=== PATIENT | male | born 1965 | race Caucasian/White ===

== ENCOUNTER → 2017-03-28 | Day surgery (SDC) | payer BC ==
[~2017-03-28] MED LIST: ESZO3TAB28 PO; IV RINGERS,LACTATED 1000ML 1,000 ML IV SCH; LIDOCAINE 2% PF Vial for OR 5 ML VIAL. ONE; PROPOFOL 40 ML IV ONE
--- NOTE | 2017-03-28 13:17 | PDOC1 ---
History and Physical Date of Admission Date of Admission DATE: 03/28/17 TIME: 13:11 Source Source: Chart review, Patient History of Present Illness History of Present Illness 51 y/o male with recent change in bowel habits, looser. H/o "polyp" at last colonoscopy 2010. Also recent heartburn and weight loss. Past Medical History Cardiovascular: Hyperlipidemia Heme/Onc: Cancer (testicular) Psych: Anxiety Past Surgical History Past Surgical History: Other (orchietomy, foot surgery x 2, rotator cuff repair , nasal septoplasty x 2) Family History Family History: Hypertension, Stroke Social History Smoke: No ALCOHOL: occassional Drugs: None Current Medications Current Medications Current Medications Ringer's Solution 1,000 ml @ 50 mls/hr Q20H IV Last administered on 03/28/17t 12:46; Start 03/28/17 at 07:00; Stop 03/28/17 at 18:59 Propofol 40 ml @ As Directed STK-MED ONCE IV ; Start 03/28/17 at 12:47; Stop at 12:48; Status DC Lidocaine HCl (Lidocaine Pf 2% Vial) 5 ml STK-MED ONCE .ROUTE ; Start 03/28/17 at 12:48; Stop 03/28/17 at 12:49; Status DC Active Scripts Active Reported Lunesta (Eszopiclone) 3 Mg Tablet 1 Tab PO QHS Allergies Allergies: Coded Allergies: No Known Drug Allergies (Unverified , 03/28/17) ROS Review of System Otherwise negative. Physical Exam General: Alert, Oriented X3, Cooperative, No acute distress HEENT: Atraumatic Lungs: Clear to auscultation Heart: S1S2, RRR Abdomen: Normal bowel sounds, Soft, No tenderness, No hepatosplenomegaly, No masses Rectal Exam: deferred (to procedure) Extremities: No cyanosis, No edema Skin: No significant lesion Neuro: Normal speech, Strength at 5/5 X4 ext, Normal tone, Sensation intact, Cranial nerves 3-12 NL, Reflexes 2+ Psych/Mental Status: Mental status NL, Mood NL Vitals Vitals Vital Signs Date Time Temp Pulse Resp B/P (MAP) Pulse Ox O2 Delivery O2 Flow Rate FiO2 03/28/17 12:34 96.8 57 18 97 96.8 VTE Prophylaxis Ordered VTE Prophylaxis Devices: No VTE Pharmacological Prophylaxi: No Assessment/Plan Assessment/Plan IMP: change in bowels/history of polyp dyspepsia/weight loss. PLAN: EGD/colonoscopy. AB MARSHALL MD Mar 28, 2017 13:17
--- NOTE | 2017-03-28 14:13 | PDOC4 ---
PROCEDURE Procedure EGD/COLON Ind: diarrhea/dyspepsisa/wt.loss/history polyp Meds: per anesthesia. Findings: E--less than grade I reflux at 43 G--antral erythema D--normal to second. Bx's duodenum, antrum HUANG normal Colonic mucosa normal to TI. Biopsies rectum, ascending, cecum. 2, 2-8mm polyps, mid sig, snared/biopsied. Small IH's. Viviana well. IMP: reflux esophagitis colon polyps hemorrhoids. PLAN: await path resume diet, meds. No ASA, NSAIDs for 2 weeks. f/u 2 weeks. AB MARSHALL MD Mar 28, 2017 14:13
[2017-03-28 14:23] VITALS: BP 126/82
--- NOTE | 2017-03-29 10:22 | PATHOLOGY ---
PATHOLOGY REPORT * * * * * * * * FINAL DIAGNOSIS: A. Duodenum "duodenum", biopsy: - No obvious diagnostic changes. - There is no evidence of acute cryptitis, granulomas, adenomatous change, sprue like changes or malignancy. B. Gastric biopsy, antrum: - Mild chronic reactive gastropathy. - There is no evidence of malignancy. - The immunoperoxidase stains for Helicobacter pylori is negative. C. Colonic mucosa "cecum", biopsy: - No obvious diagnostic changes. - There is no evidence of acute cryptitis, granulomas, adenomatous change or malignancy. D. Colonic mucosa "sigmoid colon polyp biopsy": - Hyperplastic polyp with focal early adenomatous change. - There is no evidence of high grade dysplasia or malignancy. E. Colonic mucosa "random colon biopsies": - One fragment reveals hyperplastic mucosa consistent with hyperplastic polyp. - The other fragments do not reveal any evidence of inflammation, atypia or malignancy. ([facility]; 03/29/2017) REPORT ELECTRONICALLY SIGNED BY: Oral Ashley M.D. DATE/TIME: 03/29/2017 10:21 * * * * * * * * GROSS PATHOLOGY: A. Received in formalin labeled "Stroder, Jonathan, duodenum," are multiple segments of richards soft tissue measuring from 0.2 up to 0.4 cm in maximum dimension. The specimen is submitted entirely in cassette A1. B. Received in formalin labeled "antrum," are three segments of richards soft tissue measuring from 0.1 up to 0.5 cm in maximum dimension. The specimen is submitted entirely in cassette B1. An immunoperoxidase stain to rule out Helicobacter Pylori will be obtained. C. Received in formalin labeled "cecum," are multiple segments of richards soft tissue measuring from 0.1 up to 0.3 cm in maximum dimension. The specimen is submitted entirely in cassette C1. D. Received in formalin labeled "sigmoid colon polyp," is a 1.0 x 0.8 x 0.5 cm polypoid piece of richards soft tissue. The margin is inked and the tissue is sectioned perpendicular to the margin and submitted in its entirety in cassette D1. E. Received in formalin labeled "random colon," are multiple segments of richards soft tissue measuring from 0.1 up to 0.2 cm in maximum dimension. The specimen is submitted entirely in cassette E1. ([facility]; 03/28/17) INITIAL CPT CODE(S): A; 71876 B; 22382, 00454 C; 04895 D; 53148 E; 42803 Professional services performed by [facility] at [address] [address] Technical services performed by [facility] at [address] [place] [address], [facility] [address] [place] [address]. SPECIMEN(S) RECEIVED: A.Duodenum B.Antrum C.Cecum D.Sigmoid polyp E.Random colon CLINICAL HISTORY: Abdominal pain, GERD, diarrhea PATIENT: JONATHAN POWER /AGE: 309/24/1965 (Age: 51) PATIENT #: [id number] ALT CASE #: SPECIMEN COLLECTION DATE: 03/28/2017 SPECIMEN RECEIVED DATE: 03/28/2017 [facility] - [id number] [place] [address] - PHONE: [phone] * * * END OF REPORT * * *
== END | disposition home or self-care (01) ==
LOC: ENDOS 12:07
PROVIDERS: ATTEND Internal Medicine Gastroenterology
DX: K63.5 Polyp of colon (principal); K64.8 Other hemorrhoids; K21.0 Gastro-esophageal reflux disease with esophagitis; K31.89 Other diseases of stomach and duodenum; Z87.39 Personal history of other diseases of the musculoskeletal system and connective tissue; Z82.49 Family history of ischemic heart disease and other diseases of the circulatory system
CPT/HCPCS: 43239; 45380; 45385; 88305; 88342; J2704; J2001